=== PATIENT | female | born 1945 | race Hispanic/Latino ===

== ENCOUNTER → 2017-06-10 | Outpatient (CLI) | payer MEDICARE, OTHER ==
--- NOTE | 2017-06-18 15:39 | Polysomnography ---
DATE OF STUDY: POLYSOMNOGRAM REPORT A patient of Dr. Ortiz. A 72-year-old woman 4 feet 10 inches, 235 pounds, body mass index 49, neck size 16. This represents a diagnostic polysomnogram. The patient was monitored using standard EEG lead montage. In addition, pulse oximetry was employed, nasal and oral thermistors, rib cage and abdominal strain gauge monitor, hydrotherapist. The study was abnormal. Sleep efficiency was reduced at 79%. Sleep onset latency was prolonged at 78 minutes. Patient experienced 11 obstructive apneas, the longest in duration 20 seconds. In addition, there were 153 hypopneas, the longest in duration 30 seconds. The apnea/hypopnea index was 29.3, the respiratory disturbance index 31.8, consistent with severe obstructive sleep apnea. There was significant O2 desaturations as low as 68%. Certainly the patient should be warned not to drive when left untreated. Weight reduction should be part of the patient's therapeutic program. Examination of the nasal and oropharynx as well as assay of thyroid function should be considered if not performed recently. Therapeutic options would include uvulopalatopharyngoplasty with mandibular advancement, possibly tracheostomy and nasal CPAP. Thank you for this kind referral. Job#: [id number] RYAN
== END ==
LOC: SLEEP 22:26
PROVIDERS: ATTEND Internal Medicine
DX: G47.33 Obstructive sleep apnea (adult) (pediatric) (principal)
CPT/HCPCS: 95810

== ENCOUNTER 2018-03-31 05:08 | Observation (INO) | payer MEDICARE, OTHER ==
[2018-03-29 13:36] LABS: BASOPHILS # (AUTO) 0.1 (0.0-0.1); BASOPHILS % 0.8 % (0.0-1.0); EOSINOPHILS # (AUTO) 0.4 (0.0-0.4); EOSINOPHILS % 4.7 % (0.0-6.0); HEMATOCRIT 45.9 % (34.2-44.1); HEMOGLOBIN 14.8 g/dL (12.0-16.0); LYMPHOCYTES # (AUTO) 4.5 (1.0-3.2); LYMPHOCYTES % 49.3 % (18.0-39.1); MEAN CORPUSCULAR HEMOGLOBIN 28.7 pg (28-32); MEAN CORPUSCULAR HGB CONC 32.2 g/dL (31-35); MEAN CORPUSCULAR VOLUME 89.1 fL (81-99); MONOCYTES # (AUTO) 0.8 (0.2-0.8); MONOCYTES % 9.2 % (4.4-11.3); NEUTROPHILS # (AUTO) 3.3 (2.1-6.9); NEUTROPHILS % 35.9 % (38.7-80.0); PLATELET COUNT 312 x10e3/uL (140-360); RED BLOOD COUNT 5.15 x10e6/uL (3.6-5.1); RED CELL DISTRIBUTION WIDTH 13.8 % (11.7-14.4)
[2018-03-29 13:52] LABS: ANION GAP 14.4 mmol/L (8-16); BLOOD UREA NITROGEN 13 mg/dL (7-26); BUN/CREATININE RATIO 16 (6-25); CALCIUM 10.1 mg/dL (8.4-10.2); CARBON DIOXIDE 28 mmol/L (22-29); CHLORIDE 101 mmol/L (98-107); CREATININE, SERUM 0.81 mg/dL (0.57-1.11); EST GLOMERULAR FILTRATION RATE > 60 ML/MIN (60-); GLUCOSE 95 mg/dL (74-118); SODIUM 138 mmol/L (136-145)
[2018-03-29 13:54] LABS: POTASSIUM 5.4 mmol/L (3.5-5.1)
--- NOTE | 2018-03-29 15:09 | Diagnostic Imaging Report ---
EXAMINATION: PA and lateral views of the chest. COMPARISON: None CLINICAL HISTORY: Preop exam for hiatal hernia repair DISCUSSION: Lines/tubes: None. Lungs: The lungs are well inflated and clear. There is no evidence of pneumonia or pulmonary edema. Pleura: There is no pleural effusion or pneumothorax. Heart and mediastinum: Stable borderline to mild enlargement of the cardiac silhouette. Pulmonary vasculature is normal. Bones and soft tissues: No acute bony abnormalities. Degenerative changes in the thoracic spine IMPRESSION: Stable borderline to mild enlargement of the cardiac silhouette, without acute cardiopulmonary abnormalities. Signed by: Dr. Cam Colon M.D. on 03/29/2018 3:06 PM
[~2018-03-31] VITALS: Ht 147.3 cm; Wt 113.6 kg
[~2018-03-31 05:08] MED LIST: ATORVASTATIN CA20 MG PO; CYCLOBENZAPRINE10 MG PO; FERROUS SULFAT325 MG PO; GABAPENTIN300 MG PO; HYDROCODON-ACE1 EA10 PO; IBUPROFEN400 MG PO; INVOKANA PO; JARDIANCE PO; LEVOTHYROXINE75 MCG PO; METHYLPREDNISOLO4 MG PO; METOPROLOL TART50 MG PO; MORPHINE SULFATE PO; TRAZODONE HCL50 MG PO; ULTRAM 50MG50 MG PO; VITAMIN D2 PO; XARELTO15 MG PO
--- OUTSIDE RECORDS SUMMARY | 2018-03-31 05:11 | XMS REPORT | Clinical Summary ---
Author Author [facility] [employer] [facility] Organization [facility] Address Unknown Phone Unavailable Care Team Providers Care Bird Trapper Name Role Phone Diogo Sifuentes MD PCP Allergies No Known Allergies Medications End Date Status Medication Sig Dispensed Refills Start Date Active empagliflozin (JARDIANCE) Take 10 mg by 0 10 mg tablet tablet mouth every morning. Active amitriptyline (ELAVIL) 50 Take 50 mg by 0 MG tablet mouth nightly. Active furosemide (LASIX) 40 mg Take 40 mg by 0 tablet mouth 2 (two) times a day. Active ergocalciferol (VITAMIN Take 50,000 0 D2) 50,000 unit capsule Units by mouth once a week. 12/14/2017 Discontinued metoprolol tartrate Take 50 mg by 0 (LOPRESSOR) 50 mg tablet mouth every morning. 12/14/2017 Discontinued metoprolol tartrate Take 25 mg by 0 (LOPRESSOR) 25 mg tablet mouth every evening. 12/13/2017 amoxicillin (AMOXIL) 500 Take 500 mg 0 12/03/201 MG capsule by mouth 3 8 (three) times a day. For 10 days 01/13/2018 metoprolol tartrate Take 1 tablet 30 tablet 0 (LOPRESSOR) 50 mg tablet (50 mg total) 8 by mouth every evening for 30 days. 01/13/2018 rivaroxaban (XARELTO) 15 Take 1 tablet 30 tablet 0 201 mg tablet (15 mg total) 8 by mouth daily for 30 days. Active Problems Problem Noted Date Generalized abdominal pain 12/08/2017 Congestive heart failure 06/01/2017 Diabetes mellitus 06/01/2017 Hypothyroidism 06/01/2017 Pulmonary embolism 06/01/2017 Encounters Care Team Description Date Type Specialty Serenity Reagan RN 12/14/2017 Patient Quality Outreach Sanya Carr MD Morris, MD Ida Stanley, Darby Mack MD Generalized abdominal pain (Primary Dx) 12/08/2017 [facility] General Surgery - Encounter 12/14/2017 after 03/30/2017 Social History Date Tobacco Use Types Packs/Day Years Used Former Smoker Smokeless Tobacco: Never Used Alcohol Use Drinks/Week oz/Week Comments No Sex Assigned at Date Recorded Not on file Industry Job Start Date Occupation Not on file Not on file Not on file Travel End Travel History Travel Start No recent travel history available. Last Filed Vital Signs Time Taken Vital Sign Reading 12/14/2017 3:06 PM CDT Blood Pressure 124/67 12/14/2017 3:06 PM CDT Pulse 91 12/14/2017 3:06 PM CDT Temperature 37.4 C (99.3 F) 12/14/2017 3:06 PM CDT Respiratory Rate 17 12/14/2017 3:06 PM CDT Oxygen Saturation 93% - Inhaled Oxygen - Concentration 12/08/2017 9:21 PM CDT Weight 107 kg (235 lb) 12/08/2017 9:21 PM CDT Height 147.3 cm (4' 10") 12/08/2017 9:21 PM CDT Body Mass Index 49.12 Plan of Treatment Health Maintenance Due Date Last Done Comments DIABETIC RETINAL EYE EXAM 1946 DIABETIC FOOT EXAM 1956 URINE MICROALBUMIN 1956 BREAST CANCER SCREENING 1996 COLON CANCER SCREENING 1996 SHINGLES VACCINES (1 of 1996 2) PNEUMOCOCCAL 2011 POLYSACCHARIDE VACCINE AGE 65 AND OVER PNEUMOCOCCAL-13 2011 INFLUENZA VACCINE 10/21/2017 12/21/2016 Procedures Comments Procedure Name Priority Date/Time Associated Diagnosis POC GLUCOSE Routine 12/14/2017 3:59 PM CDT POC GLUCOSE Routine 12/14/2017 11:10 AM CDT POC GLUCOSE Routine 12/14/2017 6:21 AM CDT POC GLUCOSE Routine 12/13/2017 8:09 PM CDT POC GLUCOSE Routine 12/13/2017 4:[address] ANGIOGRAM PE CHEST Routine 12/13/2017 4:03 PM CDT POC GLUCOSE Routine 12/13/2017 11:47 AM CDT POC GLUCOSE Routine 12/13/2017 6:13 AM CDT ESTIMATED GFR Routine 12/13/2017 5:54 AM CDT BASIC METABOLIC PANEL Routine 12/13/2017 5:54 AM CDT HC COMPLETE BLD COUNT Routine 12/13/2017 W/AUTO DIFF 5:54 AM CDT POC GLUCOSE Routine 12/12/2017 9:07 PM CDT POC GLUCOSE Routine 12/12/2017 4:44 PM CDT POC GLUCOSE Routine 12/12/2017 12:05 PM CDT POC GLUCOSE Routine 12/12/2017 6:15 AM CDT POC GLUCOSE Routine 12/11/2017 8:58 PM CDT POC GLUCOSE Routine 12/11/2017 4:52 PM CDT POC GLUCOSE Routine 12/11/2017 11:06 AM CDT ESTIMATED GFR Routine 12/11/2017 6:34 AM CDT BASIC METABOLIC PANEL Routine 12/11/2017 6:34 AM CDT HC COMPLETE BLD COUNT Routine 12/11/2017 W/AUTO DIFF 6:34 AM CDT POC GLUCOSE Routine 12/11/2017 5:42 AM CDT POC GLUCOSE Routine 12/10/2017 8:52 PM CDT POC GLUCOSE Routine 12/10/2017 4:00 PM CDT US DUPLEX VENOUS LOWER STAT 12/10/2017 EXTREMITY LEFT 3:40 PM CDT POC GLUCOSE Routine 12/10/2017 11:17 AM CDT ESTIMATED GFR STAT 12/10/2017 8:19 AM CDT BASIC METABOLIC PANEL STAT 12/10/2017 8:19 AM CDT HC COMPLETE BLD COUNT STAT 12/10/2017 W/AUTO DIFF 8:19 AM CDT POC GLUCOSE Routine 12/10/2017 6:24 AM CDT POC GLUCOSE Routine 12/10/2017 6:18 AM CDT POC GLUCOSE Routine 12/09/2017 9:02 PM CDT POC GLUCOSE Routine 12/09/2017 5:[address] ABDOMEN PELVIS W STAT 12/08/2017 CONTRAST 11:48 PM CDT ECG ED PRELIMINARY Routine 12/08/2017 INTERPRETATION 10:37 PM CDT LIPASE LEVEL Routine 12/08/2017 10:28 PM CDT ESTIMATED GFR Routine 12/08/2017 10:28 PM CDT B NATRIURETIC PEPTIDE Routine 12/08/2017 10:28 PM CDT TROPONIN Routine 12/08/2017 10:28 PM CDT COMPREHENSIVE METABOLIC Routine 12/08/2017 PANEL 10:28 PM CDT PROTHROMBIN TIME WITH INR Routine 12/08/2017 10:28 PM CDT HC COMPLETE BLD COUNT Routine 12/08/2017 W/AUTO DIFF 10:28 PM CDT ECG ED PRELIMINARY Routine 12/08/2017 INTERPRETATION 10:15 PM CDT ECG 12-LEAD STAT 12/08/2017 10:12 PM CDT XR CHEST 1 VW PORTABLE STAT 12/08/2017 9:51 PM CDT after 03/30/2017 Results * POC glucose (12/14/2017 3:59 PM CDT) Only the most recent of 22 results within the time period is included. POC glucose 120 (H) 65 - 100 mg/dL [facility] Comment: PATHOLOGY AND Meter ID: [id number] GENOMIC MEDICINE Biomedical Equipment Tech: Basia James Performing Organization Address City/State/Zipcode Phone Number [facility] [address] [place] [address] PATHOLOGY AND GENOMIC MEDICINE * CT Angiogram Pe Chest (12/13/2017 4:03 PM CDT) Narrative Performed At EXAMINATION: [facility] CT ANGIOGRAM PE CHEST CLINICAL HISTORY:72 years Female DVT TECHNIQUE:CT angiographic images of the chest were obtained during intravenous administration of iodinated contrast. Computerized reformatted images and 3-D MIP images were also obtained and archived (CT pulmonary embolus protocol). CT imaging was performed with iterative reconstruction techniques and/or automated exposure control to reduce radiation dose. COMPARISON: None. FINDINGS: 1.There is no evidence of central pulmonary artery embolus. 2.There is no evidence of hilar or mediastinal lymphadenopathy. 3.No parenchymal abnormality is noted in the lungs. 4.Changes are noted involving the spine. IMPRESSION: 1.No evidence of central pulmonary artery embolus. [facility]-[id number] Procedure Note [facility], Radiology Results Incoming - 12/13/2017 4:09 PM CDT EXAMINATION: CT ANGIOGRAM PE CHEST CLINICAL HISTORY:72 years Female DVT TECHNIQUE: CT angiographic images of the chest were obtained during intravenous administration of iodinated contrast. Computerized reformatted images and 3-D MIP images were also obtained and archived (CT pulmonary embolus protocol). CT imaging was performed with iterative reconstruction techniques and/or automated exposure control to reduce radiation dose. COMPARISON: None. FINDINGS: 1. There is no evidence of central pulmonary artery embolus. 2. There is no evidence of hilar or mediastinal lymphadenopathy. 3. No parenchymal abnormality is noted in the lungs. 4. Changes are noted involving the spine. IMPRESSION: 1. No evidence of central pulmonary artery embolus. [facility]-[id number] Performing Organization Address City/State/Zipcode Phone Number [facility] [address] [place] [address] * Estimated GFR (12/13/2017 5:54 AM CDT) Only the most recent of 4 results within the time period is included. Estimated GFR 87 mL/min/1.73 m2 [facility] Comment: PATHOLOGY AND [employer] GENOMIC MEDICINE rpretation G1 >=90 Normal or high G2 60-89Mildly decreased [id number] Mildly to moderately decreased [id number] Moderately to severely decreased G4 15-29Severely decreased G5 <15Kidney failure The eGFR was calculated using the Chronic Kidney Disease Epidemiology Collaboration (CKD-EPI) equation. Interpretation is based on recommendations of the National Kidney Foundation-Kidney Disease Outcomes Quality Initiative (NKF-KDOQI) published in 2014. Specimen Plasma specimen Performing Organization Address City/State/Zipcode Phone Number [facility] [place] [address] PATHOLOGY AND GENOMIC MEDICINE * CBC with platelet and differential (12/13/2017 5:54 AM CDT) Only the most recent of 4 results within the time period is included. WBC 6.2 4.2 - 11.0 k/uL [facility] PATHOLOGY AND GENOMIC MEDICINE RBC 4.59 4.04 - 5.86 m/uL [facility] PATHOLOGY AND GENOMIC MEDICINE HGB 12.8 11.5 - 15.3 g/dL [facility] PATHOLOGY AND GENOMIC MEDICINE HCT 41.4 34.0 - 45.0 % [facility] PATHOLOGY AND GENOMIC MEDICINE MCV 90.2 80.0 - 98.0 fL [facility] PATHOLOGY AND GENOMIC MEDICINE MCH 27.9 27.0 - 34.0 pg [facility] PATHOLOGY AND GENOMIC MEDICINE MCHC 30.9 (L) 31.5 - 36.5 g/dL [facility] PATHOLOGY AND GENOMIC MEDICINE RDW - SD 42.3 37.0 - 51.0 fL [facility] PATHOLOGY AND GENOMIC MEDICINE MPV 9.7 7.4 - 10.4 fL [facility] PATHOLOGY AND GENOMIC MEDICINE Platelet count 242 150 - 400 k/uL [facility] PATHOLOGY AND GENOMIC MEDICINE Nucleated RBC 0.00 /100 WBC [facility] PATHOLOGY AND GENOMIC MEDICINE Neutrophils 34.6 (L) 36.0 - 66.0 % [facility] PATHOLOGY AND GENOMIC MEDICINE Lymphocytes 50.0 (H) 24.0 - 44.0 % [facility] PATHOLOGY AND GENOMIC MEDICINE Monocytes 8.9 (H) 0.0 - 6.0 % [facility] OF PATHOLOGY AND GENOMIC MEDICINE Eosinophils 5.7 0.0 - 6.0 % [facility] OF PATHOLOGY AND GENOMIC MEDICINE Basophils 0.6 0.0 - 1.2 % [facility] OF PATHOLOGY AND GENOMIC MEDICINE Immature granulocytes 0.2 0.0 - 1.0 % [facility] PATHOLOGY AND GENOMIC MEDICINE Specimen Blood Performing Organization Address City/[facility] Phone [facility] [place] [address] [place] [address] PATHOLOGY AND [employer] MEDICINE * Basic metabolic panel (12/13/2017 5:54 AM CDT) Only the most recent of 3 results within the time period is included. Sodium 143 135 - 150 mEq/L [facility] PATHOLOGY AND GENOMIC MEDICINE Potassium 3.5 3.5 - 5.0 mEq/L [facility] OF PATHOLOGY AND GENOMIC MEDICINE Chloride 103 98 - 112 mEq/L [facility] PATHOLOGY AND GENOMIC MEDICINE CO2 30 24 - 31 mmol/L [facility] OF PATHOLOGY AND GENOMIC MEDICINE Anion gap 10@ANIO 7 - 15 mEq/L [facility] OF PATHOLOGY AND GENOMIC MEDICINE BUN 16 7 - 18 mg/dL [facility] OF PATHOLOGY AND GENOMIC MEDICINE Creatinine 0.70 0.50 - 0.90 mg/dL [facility] PATHOLOGY AND GENOMIC MEDICINE Glucose 84 65 - 100 mg/dL [facility] OF PATHOLOGY AND GENOMIC MEDICINE Calcium 8.6 (L) 8.8 - 10.2 mg/dL [facility] PATHOLOGY AND GENOMIC MEDICINE Specimen Plasma specimen Performing Organization Address City/[facility] Phone Number [place] [address] [place] [address] PATHOLOGY AND [employer] [facility] * Pv duplex venous lower extremity (12/10/2017 3:40 PM CDT) Narrative Performed At PROCEDURE:US DUPLEX VENOUS LOWER EXTREMITY LEFT [facility] CLINICAL HISTORY:Leg swelling or painDVT suspected COMPARISON:None. TECHNIQUE: Compression of the accessible segments of the deep venous system of the left lower extremity was performed in addition to Doppler interrogation by both color flow and pulse wave Doppler with use of augmentation and Valsalva maneuvers. Grayscale, color Doppler, and spectral waveform analysis of the lower extremity deep venous systems were performed. Interrogation of the contralateral common femoral vein was performed. and is patent. FINDINGS: Absence of compression is demonstrated of the left popliteal vein No abnormal intraluminal echogenicity is seen. Good compression is seen in the remainder of the deep venous system of the left lower extremity with flow present in the left peroneal and posterior tibial veins. IMPRESSION: Abnormal study. Acute deep venous thrombosis of the left popliteal vein. Critical findings were discussed with Nurse Berenice Newman [facility] Observation Unit12/10/2017 3:51 PMwho verbalized understanding. [id number] . Procedure Note [facility] Interface, Radiology Results Incoming - 12/10/2017 3:56 PM CDT PROCEDURE: US DUPLEX VENOUS LOWER EXTREMITY LEFT CLINICAL HISTORY: Leg swelling or pain DVT suspected COMPARISON: None. TECHNIQUE: Compression of the accessible segments of the deep venous system of the left lower extremity was performed in addition to Doppler interrogation by both color flow and pulse wave Doppler with use of augmentation and Valsalva maneuvers. Grayscale, color Doppler, and spectral waveform analysis of the lower extremity deep venous systems were performed. Interrogation of the contralateral common femoral vein was performed. and is patent. FINDINGS: Absence of compression is demonstrated of the left popliteal vein No abnormal intraluminal echogenicity is seen. Good compression is seen in the remainder of the deep venous system of the left lower extremity with flow present in the left peroneal and posterior tibial veins. IMPRESSION: Abnormal study. Acute deep venous thrombosis of the left popliteal vein. Critical findings were discussed with Nurse Berenice Newman at [facility] Observation Unit 12/10/2017 3:51 PM who verbalized understanding. [id number] . Performing Organization Address City/State/Zipcode Phone Number [facility] [address] [place] [address] * CT Abdomen Pelvis W Contrast (12/08/2017 11:48 PM CDT) Narrative Performed At EXAM: [facility]:diffuse abd pain TECHNIQUE: Multidetector CT of the abdomen and pelvis was performed following intravenous administration of iodinated contrast with multiplanar reformats. CT scans are performed using radiation dose reduction techniques (iterative reconstruction and/or automated exposure control). Technical factors are evaluated and adjusted to ensure appropriate moderation of exposure. Automated dose management technology is applied to adjust radiation exposure while achieving a diagnostic quality image. COMPARISON:None FINDINGS: Lung bases: Dependent atelectasis. Few calcifications identified within the aortic annulus. Otherwise unremarkable. Liver:No evidence for suspicious focal hepatic lesion. Gallbladder and biliary:The gallbladder is absent. Clips within the gallbladder fossa. Pancreas:No focal pancreatic lesion identified. No pancreatic duct dilatation. Spleen: Unremarkable. Gastrointestinal:Stomach is unremarkable in appearance. Large and small bowel are normal in caliber. Appendix is not visualized. No focal inflammatory changes within the right lower quadrant of the abdomen. Peritoneum:No ascites or free air. Adrenals: Unremarkable. Kidneys and ureters: Couple scattered subcentimeter hypodensities are identified, incompletely characterized on the current examination but statistically patient representative of cysts. There is no evidence for large irregular renal mass, obstructing calculi, hydronephrosis, or hydroureter. Urinary bladder: Unremarkable. Reproductive organs:Uterus is surgically absent. Lymph nodes:No enlarged lymph nodes in the abdomen or pelvis. Vascular:Mild atherosclerotic changes of the abdominal aorta and major branch vessels. Evaluation of vessel lumens is limited due to lack of IV contrast. Abdominal wall: Small periumbilical fat-containing hernia (image 89, series 2). Bones:Scattered degenerative changes of the spine are noted. No acute osseous abnormality identified. IMPRESSION: 1.No CT evidence for acute abdominopelvic process. Chronic findings as listed. Small periumbilical fat-containing hernia is identified. No CT evidence for inguinal hernia. [facility]-[id number] Procedure Note [facility], Radiology Results Incoming - 12/08/2017 11:56 PM CDT EXAM: CT ABDOMEN PELVIS W CONTRAST CLINICAL HISTORY: diffuse abd pain TECHNIQUE: Multidetector CT of the abdomen and pelvis was performed following intravenous administration of iodinated contrast with multiplanar reformats. CT scans are performed using radiation dose reduction techniques (iterative reconstruction and/or automated exposure control). Technical factors are evaluated and adjusted to ensure appropriate moderation of exposure. Automated dose management technology is applied to adjust radiation exposure while achieving a diagnostic quality image. COMPARISON: None FINDINGS: Lung bases: Dependent atelectasis. Few calcifications identified within the aortic annulus. Otherwise unremarkable. Liver: No evidence for suspicious focal hepatic lesion. Gallbladder and biliary: The gallbladder is absent. Clips within the gallbladder fossa. Pancreas: No focal pancreatic lesion identified. No pancreatic duct dilatation. Spleen: Unremarkable. Gastrointestinal: Stomach is unremarkable in appearance. Large and small bowel are normal in caliber. Appendix is not visualized. No focal inflammatory changes within the right lower quadrant of the abdomen. Peritoneum: No ascites or free air. Adrenals: Unremarkable. Kidneys and ureters: Couple scattered subcentimeter hypodensities are identified, incompletely characterized on the current examination but statistically patient representative of cysts. There is no evidence for large irregular renal mass, obstructing calculi, hydronephrosis, or hydroureter. Urinary bladder: Unremarkable. Reproductive organs: Uterus is surgically absent. Lymph nodes: No enlarged lymph nodes in the abdomen or pelvis. Vascular: Mild atherosclerotic changes of the abdominal aorta and major branch vessels. Evaluation of vessel lumens is limited due to lack of IV contrast. Abdominal wall: Small periumbilical fat-containing hernia (image 89, series 2). Bones: Scattered degenerative changes of the spine are noted. No acute osseous abnormality identified. IMPRESSION: 1. No CT evidence for acute abdominopelvic process. Chronic findings as listed. Small periumbilical fat-containing hernia is identified. No CT evidence for inguinal hernia. [facility]-[id number] Performing Organization Address City/State/Zipcode Phone Number [facility] [address] [place] [address] * ECG ED Preliminary Interpretation - NOT AN ORDER (12/08/2017 10:37 PM CDT) Only the most recent of 2 results within the time period is included. Narrative Performed At Sanya Carr MD 12/08/2017 10:38 PM ECG ED Preliminary Interpretation - Not an Order Performed by: SANYA CARR Authorized by: SANYA CARR ECG reviewed by ED Physician in the absence of a eight arm operator: yes Previous ECG: Previous ECG:Compared to current Interpretation: Interpretation: normal Rate: ECG rate:63 ECG rate assessment: normal Rhythm: Rhythm: sinus rhythm Ectopy: Ectopy: none QRS: QRS axis:Normal Conduction: Conduction: normal ST segments: ST segments:Normal T waves: T waves: normal * Troponin (12/08/2017 10:28 PM CDT) Troponin <0.30 0.00 - 0.30 ng/mL [facility] Comment: PATHOLOGY AND 0.11 - 1.49 GENOMIC MEDICINE ng/mlMay indicate increased risk of acute coronary syndrome. >=1.5 ng/ml Consistent with acute myocardial infarction. The diagnostic value of a single normal or non-diagnostic result is questionable.Serial samples at 2-6 hour intervals are required to rule out acute myocardial injury. Specimen Plasma specimen Performing Organization Address [facility] [place] [address] PATHOLOGY AND [employer] MEDICINE * Prothrombin time with INR (12/08/2017 10:28 PM CDT) Prothrombin time 12.9 12.0 - 15.0 sec [facility] PATHOLOGY AND GENOMIC MEDICINE INR 0.96 0.92 - 1.12 [facility] Comment: PATHOLOGY AND For patients on anticoagulant GENOMIC MEDICINE therapy, reference ranges below: Indication: INR Value Treatment of Venous Thrombosis, 2.0-3.0 pulmonary emboli, or prophylaxis of a venous thrombosis, or systemic emboli. High dose, high risk patients 3.0-4.5 with mechanical valves. NOTE:INR values over 3.0 are sometimes associated with gastrointestinal hemorrhage, especially values over 4.0. Specimen Blood Performing Organization Address [facility] [place] [address] PATHOLOGY AND [employer] [facility] * B natriuretic peptide (12/08/2017 10:28 PM CDT) BNP 28 0 - 100 pg/mL [facility] PATHOLOGY AND [employer] MEDICINE Specimen Blood Performing Organization Address [facility] [place] [address] PATHOLOGY AND [employer] MEDICINE * Lipase level (12/08/2017 10:28 PM CDT) Lipase 30 13 - 60 U/L [facility] PATHOLOGY AND [employer] MEDICINE Specimen Plasma specimen Performing Organization Address [facility] [place] [address] PATHOLOGY AND [employer] MEDICINE * Comprehensive metabolic panel (12/08/2017 10:28 PM CDT) Sodium 145 135 - 150 mEq/L [facility] OF PATHOLOGY AND GENOMIC MEDICINE Potassium 3.6 3.5 - 5.0 mEq/L [facility] OF PATHOLOGY AND GENOMIC MEDICINE Chloride 103 98 - 112 mEq/L [facility]OLOGY AND GENOMIC MEDICINE CO2 28 24 - 31 mmol/L [facility] PATHOLOGY AND GENOMIC MEDICINE Anion gap 14@ANIO 7 - 15 mEq/L [facility] OF PATHOLOGY AND GENOMIC MEDICINE BUN 18 7 - 18 mg/dL [facility] OF PATHOLOGY AND GENOMIC MEDICINE Creatinine 0.80 0.50 - 0.90 mg/dL [facility] OF PATHOLOGY AND GENOMIC MEDICINE Glucose 115 (H) 65 - 100 mg/dL [facility] OF PATHOLOGY AND GENOMIC MEDICINE Calcium 9.2 8.8 - 10.2 mg/dL [facility] OF PATHOLOGY AND GENOMIC MEDICINE Protein 7.4 6.3 - 8.3 g/dL [facility] OF PATHOLOGY AND GENOMIC MEDICINE Albumin 3.6 3.5 - 5.0 g/dL [facility] OF PATHOLOGY AND GENOMIC MEDICINE A/G ratio 0.9 0.7 - 3.8 [facility] OF PATHOLOGY AND GENOMIC MEDICINE Alkaline phosphatase 76 0 - 104 U/L [facility] PATHOLOGY AND GENOMIC MEDICINE AST 20 10 - 35 U/L [facility] OF PATHOLOGY AND GENOMIC MEDICINE ALT 13 5 - 50 U/L [facility] DEPARTMENT OF PATHOLOGY AND GENOMIC MEDICINE Total bilirubin 0.3 0.2 - 1.2 mg/dL [facility] [place] [facility]PARTMENT OF PATHOLOGY AND GENOMIC MEDICINE Specimen Plasma specimen Performing Organization Address City/[facility] Phone Number [facility] [address] [place] [id number] PATHOLOGY AND GENOMIC MEDICINE * ECG 12 lead (12/08/2017 10:12 PM CDT) Ventricular rate 63 [facility] Atrial rate 63 [facility] RI interval 152 [facility] QRSD interval 88 [facility] QT interval 410 [facility] QTC interval 419 [facility] P axis 1 41 [facility] QRS axis 1 269 [facility] T wave axis 129 [facility] EKG impression Normal sinus rhythm-Low [facility] voltage QRS-Possible Anterolateral infarct , age undetermined-Abnormal ECG-No previous ECGs available- Performing Organization Address City/[facility] Phone Number [facility] M[facility] [address] [place] [address] * XR Chest 1 Vw Portable (12/08/2017 9:51 PM CDT) Narrative Performed At EXAMINATION: XR CHEST 1 VW PORTABLE [facility] CLINICAL HISTORY: Chest Pain COMPARISON:None. IMPRESSION: The lungs are clear. No pleural effusion or pneumothorax. The cardiomediastinal silhouette is normal. No acute osseous abnormalities. [facility]-[id number] Procedure Note Hm Interface, Radiology Results Incoming - 12/08/2017 9:58 PM CDT EXAMINATION: XR CHEST 1 VW PORTABLE CLINICAL HISTORY: Chest Pain COMPARISON: None. IMPRESSION: The lungs are clear. No pleural effusion or pneumothorax. The cardiomediastinal silhouette is normal. No acute osseous abnormalities. [facility]-[id number] Performing Organization Address City/State/Zipcode Phone Number [facility] [address] [place] [address] after 03/30/2017 Insurance Payer Benefit Subscriber ID Type Phone Address Plan / Group [facility] MEDICAID [facility] xxxxxxxxx HMO COMM STAR+ EDELMIRA [facility] MEDICARE [facility] DUAL xxxxxxxxx HMO COMPLETE MCR Advance Directives Patient has advance care planning documents on file. For more information, viry may contact: Pranav Apple [address] [place] [address]
--- OUTSIDE RECORDS SUMMARY | 2018-03-31 05:11 | XMS REPORT ---
Author Author Martita Simmons Organization e[employer] Address Unknown Phone Unavailable Care Team Providers Care Appeals Nurse Name Role Phone Martita Simmons CP Unavailable Allergies, Adverse Reactions, Alerts Substance Reaction Event Type Contrast dye Info Not Available Drug Allergy Problems Problem Type Condition Code Onset Dates Condition Status Assessment Counseling NOS Z71.9 Active Assessment Lymphedema of left leg I89.0 Active Problem Osteoarthritis involving multiple joints on both sides of body M15.9 Active Problem Lymphedema of left leg I89.0 Active Problem Rheumatoid arthritis of multiple sites without rheumatoid factor M06.09 Active Assessment Left cervical radiculopathy M54.12 Active Assessment Osteoarthritis involving multiple joints on both sides of body M15.9 Active Assessment Rheumatoid arthritis of multiple sites without rheumatoid factor M06.09 Active Assessment Cervicalgia M54.2 Active Medications Medication Code System Code Instructions Start Date End Date Status Dosage Methotrexate [facility] [address]-32 2.5 MG Orally Once a week September 01, 2016 Active 4 tabs MethylPREDNISolone [facility] [address]-43 4 MG Orally Active 1 tablet with food or milk in the morning Trazodone HCl [facility] [address]-96 50 MG Orally Once a day Active 1 tablet at bedtime as needed Ibuprofen [facility] [address]-84 800 MG Orally Three times a day Active 1 tablet with food or milk Invokana [facility] [address]-69 100 MG Orally Once a day Active 1 tablet Cyclobenzaprine HCl [facility] [address]-41 10 MG Orally Three times a day Active 1 tablet as needed Ferrous Sulfate [facility] [address]-58 325 (65 Fe) MG Orally Once a day Active 1 tablet PredniSONE [facility] [address]-44 5 MG Orally Once a day prn with food Dec 30, 2016 Active 1 tablet Gabapentin [facility] [address]-75 300 MG Orally bedtime September 01, 2016 Active 1 capsule Vitamin D2 [facility] [address] 2000 UNIT Orally Once a day Active 1 tablet Atorvastatin Calcium [facility] [address]-79 20 MG Orally Once a day Active 1 tablet Folic Acid [facility] [address]-23 1 MG Orally Once a day September 01, 2016 Active 1 tablet Levothyroxine Sodium [facility] [address]-09 75 MCG Orally Once a day Active 1 tablet on an empty stomach in the morning Vital Signs Date/Time: September 01, 2016 Height 59 in Blood Pressure Diastolic 104 mm Hg Blood Pressure Systolic 153 mm Hg Weight 251 lbs Results No Known Results Summary Purpose eClinicalWorks Submission
--- OUTSIDE RECORDS SUMMARY | 2018-03-31 05:11 | XMS REPORT ---
Author Author [facility] Organization [facility] Address Unknown Phone Unavailable Care Team Providers Care Residential Advisor Name Role Phone DUKE WISE Unavailable Unavailable Payers Payer Name Policy Type Policy Number Effective Date Expiration Date Problems This patient has no known problems. Allergies, Adverse Reactions, Alerts Allergy Name Allergy Type Status Severity Reaction(s) Onset Date Inactive Date Treating Clinician Comments No Known Allergies DA Active U 2017-02-19 00:00:00 Medications This patient has no known medications. Results Test Description Test Time Test Comments Text Results Atomic Results Result Comments CHEST 2 VIEWS 2018-03-29 15:05:00 [place] [address] Patient Name: DAVID MONTERROSO MR #: [id number] : 1945 Age/Sex: 72/F Req #: [id number] Adm Physician: Ordered by: DUKE WISE MD Report #: [id number] Location: OR Room/Bed: Procedure: [id number] DX/CHEST 2 VIEWS Exam Date: 03/29/18 Exam Time: 1350 REPORT STATUS: Signed EXAMINATION: PA and lateral views of the chest. COMPARISON: None CLINICAL HISTORY: Preop exam for hiatal hernia repair DISCUSSION: Lines/tubes: None. Lungs: The lungs are well inflated and clear. There is no evidence of pneumonia or pulmonary edema. Pleura: There is no pleural effusion or pneumothorax. Heart and mediastinum: Stable borderline to mild enlargement of the cardiac silhouette. Pulmonary vasculature is normal. Bones and soft tissues: No acute bony abnormalities. Degenerative changes in the thoracic spine IMPRESSION: Stable borderline to mild enlargement of the cardiac silhouette, without acute cardiopulmonary abnormalities. Signed by: Dr. Sylvain Colon M.D. on 03/29/2018 3:06 PM Dictated By: SYLVAIN COLON MD [id number] Transcribed By: GRICEL on 03/29/18 1506 COPY TO: DUKE WISE MD
--- OUTSIDE RECORDS SUMMARY | 2018-03-31 05:11 | XMS REPORT | Continuity of Care Document ---
Author Author [facility] Interface Address Unknown Phone Unavailable Problems Problem Status Onset Date Classification Date Reported Comments Source Lymphedema of left leg Active Diagnosis 09/02/2016 Martita Najam Pain in right wrist Active Diagnosis 07/15/2016 Martita Najam Osteoarthritis involving multiple joints on both sides of body Active Problem 09/02/2016 Martita Najam Stiffness of right wrist joint Active Diagnosis 07/15/2016 Martita Najam Pain in left wrist Active Diagnosis 07/25/2016 Martita Najam Stiffness of left wrist joint Active Diagnosis 07/25/2016 Martita Najam Swelling of joint, wrist, left Active Diagnosis 07/25/2016 Martita Najam Counseling NOS Active Diagnosis 09/02/2016 Martita Najam Pain of left hand Active Diagnosis 07/03/2016 Martita Najam Left cervical radiculopathy Active Diagnosis 09/02/2016 Martita Najam Pain in right hand Active Diagnosis 07/03/2016 Martita Najam Cervicalgia Active Diagnosis 09/02/2016 Martita Najam Rheumatoid arthritis of multiple sites without rheumatoid factor Active Problem 09/02/2016 Martitafrankie Simmons Medications Medication Details Route Status Patient Instructions Ordering Provider Order Date Source PredniSONE 1 tablet Orally Active 5 MG Orally Once a day prn with food [facility] 12/30/2016 [facility] Methotrexate 4 tabs Orally Active 2.5 MG Orally Once a week Naja 09/01/2016 Martita [facility] Gabapentin 1 capsule Orally Active 300 MG Orally bedtime Naja 09/01/2016 Martita [facility] Folic Acid 1 tablet Orally Active 1 MG Orally Once a day [facility] 09/01/2016 Martita Naja PredniSONE 1 tablet Orally Active 5 MG Orally Once a day prn with food Naja 07/02/2016 [facility]ita [facility] Levothyroxine Sodium 1 tablet on an empty stomach in the morning Orally Active 75 MCG [facility] Ator[facility]atin Calcium 1 tablet Orally Active 20 MG [facility]ally [facility] Najam MethylPREDNISolone 1 tablet with food or milk in the morning Orally Active 4 MG Orally Troy Simmons Trazodone HCl 1 tablet at bedtime as needed Orally Active 50 MG Orally Once a day Troy Simmons Vitamin D2 1 tablet Orally Active 2000 UNIT Orally Once a day Troy Simmons Cyclobenzaprine HCl 1 tablet as needed Orally Active 10 MG Orally Three times a day Troy Simmons Ferrous Sulfate 1 tablet Orally Active 325 (65 Fe) MG Orally Once a day Troy Simmons Ibuprofen 1 tablet with food or milk Orally Active 800 MG Orally Three times a day Troy Simmons Invokana 1 tablet Orally Active 100 MG Orally Once a day Troy Simmons Allergies, Adverse Reactions, Alerts Substance Category Reaction Severity Reaction type Status Date Reported Comments Source Contrast dye Adverse Reaction Info Not Available Adverse Reaction Active 09/01/2016 Martita Simmons Immunizations Immunization Date Given Site Status Last Updated Comments Source Results Order Name Results Value Reference Range Date Interpretation Comments Source Vital Signs Vital Sign Value Date Comments Source Height 59 09/01/2016 Martita Namarniem Diastolic (mm Hg) 104 09/01/2016 Martita Najam Systolic (mm Hg) 153 09/01/2016 Martita Collinsm Weight 251 09/01/2016 Martita Simmons Height 59 07/02/2016 Martita Najam Diastolic (mm Hg) 73 07/02/2016 Martita Najam Systolic (mm Hg) 136 07/02/2016 Martita Simmons Weight 261.0 07/02/2016 Martita Simmons Encounters Location Location Details Encounter Type Encounter Number Reason For Visit Attending Provider ADM Date DC Date Status Source Procedures Procedure Code Date Perfomer Comments Source
--- OUTSIDE RECORDS SUMMARY | 2018-03-31 05:11 | XMS REPORT ---
Author Author Martita Simmons Organization [employer] Address Unknown Phone Unavailable Care Team Providers Care Brake Machine Operator Name Role Phone Martita Simmons CP Unavailable Allergies No Known Allergies Problems Problem Type Condition Code Onset Dates Condition Status Problem Lymphedema of left leg I89.0 Active Assessment Pain in right wrist M25.531 Active Problem Osteoarthritis involving multiple joints on both sides of body M15.9 Active Assessment Stiffness of right wrist joint M25.631 Active Medications No Known Medications Results No Known Results Summary Purpose eClinicalWorks Submission
--- OUTSIDE RECORDS SUMMARY | 2018-03-31 05:11 | XMS REPORT ---
Author Author Martita Simmons Organization [employer] Address Unknown Phone Unavailable Care Team Providers Care Shipping Specialist Name Role Phone Martita Simmons CP Unavailable Allergies No Known Allergies Problems Problem Type Condition Code Onset Dates Condition Status Problem Lymphedema of left leg I89.0 Active Assessment Pain in left wrist M25.532 Active Problem Osteoarthritis involving multiple joints on both sides of body M15.9 Active Assessment Stiffness of left wrist joint M25.632 Active Assessment Swelling of joint, wrist, left M25.432 Active Medications No Known Medications Results No Known Results Summary Purpose eClinicalWorks Submission
--- OUTSIDE RECORDS SUMMARY | 2018-03-31 05:11 | XMS REPORT ---
Author Author Martita Simmons Organization [employer] Address Unknown Phone Unavailable Care Team Providers Care [place] Cutter Operator Name Role Phone Martita Simmons CP Unavailable Allergies, Adverse Reactions, Alerts Substance Reaction Event Type Contrast dye Info Not Available Drug Allergy Problems Problem Type Condition Code Onset Dates Condition Status Assessment Counseling NOS Z71.9 Active Assessment Lymphedema of left leg I89.0 Active Problem Lymphedema of left leg I89.0 Active Assessment Pain of left hand M79.642 Active Problem Osteoarthritis involving multiple joints on both sides of body M15.9 Active Assessment Left cervical radiculopathy M54.12 Active Assessment Osteoarthritis involving multiple joints on both sides of body M15.9 Active Assessment Pain in right hand M79.641 Active Assessment Cervicalgia M54.2 Active Medications Medication Code System Code Instructions Start Date End Date Status Dosage PredniSONE [facility] [address]-06 5 MG Orally Once a day prn with food July 02, 2016 Active 1 tablet Levothyroxine Sodium [facility] [address]-23 75 MCG Orally Once a day Active 1 tablet on an empty stomach in the morning Atorvastatin Calcium [facility] [address]-06 20 MG Orally Once a day Active 1 tablet M[address]ISolone [facility] [address]-42 4 MG Orally Active 1 tablet with food or milk in the morning Trazodone HCl [facility] [address]-98 50 MG Orally Once a day Active 1 tablet at bedtime as needed Vitamin D2 [facility] [address] 2000 UNIT Orally Once a day Active 1 tablet Cyclobenzaprine HCl [facility] [address]-24 10 MG Orally Three times a day Active 1 tablet as needed Ferrous Sulfate [facility] [address]-39 325 (65 Fe) MG Orally Once a day Active [address] [facility] [address]-55 800 MG Orally Three times a day Active 1 tablet with food or milk Invokana [facility] [address]-91 100 MG Orally Once a day Active 1 tablet Vital Signs Date/Time: July 02, 2016 Height 59 in Blood Pressure Diastolic 73 mm Hg Blood Pressure Systolic 136 mm Hg Weight 261.0 lbs Results No Known Results Summary Purpose eClinicalWorks Submission
[2018-03-31] MEDS ORDERED: CEFAZOLIN SOD 2 GM/D5W 50ML 50 ML IV ONE (05:58)
[2018-03-31] MEDS ORDERED: VITAMIN D1000 UNI1 PO (06:09)
[2018-03-31] MEDS ORDERED: BUPIVACAINE HCL 0.5% 10ML MPF VIAL INJ ONE (06:33)
[2018-03-31] MEDS ORDERED: BUPIVACAINE 0.25% 30ML SDV INJ ONE (06:35)
--- NOTE | 2018-03-31 07:10 | NUR ---
SPIRITUAL CARE - Pre-Surgery Assessment: Pt in bed. Pt reported supportive attention from family and friends. Intervention: I provided pastoral presence, hospitality, prayer, and sympathetic listening. I acquainted pt with availability of chef's assistant while hospitalized. Outcome: Pt expressed appreciation for visit. No need for follow up indicated at this time. DASIA Carrionlain Spiritual Care Department O: [phone] Pager: [phone] ([phone] number calling from)
[2018-03-31] MEDS ORDERED: HYDROMORPHONE 1MG/1ML INJ IV PRN (10:00)
[2018-03-31] MEDS ORDERED: ONDANSETRON HCL INJ 2 MG/ML VIAL IV PRN (10:00)
[2018-03-31] MEDS ORDERED: FENTANYL CITRATE/PF 100MCG/2 ML INJ ONE ×2 (10:13→21:21)
[2018-03-31] MEDS ORDERED: KETOROLAC TROMETHAMINE 30 MG/ML VIAL ONE (10:40)
--- OUTSIDE RECORDS SUMMARY | 2018-03-31 11:37 | XMS REPORT | Clinical Summary ---
Author Author [facility] Address Unknown Phone Unavailable Care Team Providers Care Organizational Development Director Name Role Phone Diogo Sifuentes MD PCP [...] MD Generalized abdominal pain (Primary Dx) 12/08/2017 [facility] General Surgery - Encounter 12/14/2017 after 03/30/2017 [...] glucose 120 (H) 65 - 100 mg/dL [facility] Comment: PATHOLOGY AND Meter ID: [id number] GENOMIC MEDICINE Packaging Sales: Basia James Performing Organization Address City/State/Zipcode Phone Number [facility] [address] [place] [address] PATHOLOGY AND GENOMIC MEDICINE * CT Angiogram Pe Chest (12/13/2017 4:03 PM CDT) Narrative Performed At EXAMINATION: [facility] CT ANGIOGRAM PE CHEST CLINICAL HISTORY:72 years [...] 1.No evidence of central pulmonary artery embolus. [facility]-[id number] Procedure Note [facility], Radiology Results Incoming - 12/13/2017 4:09 PM [...] No evidence of central pulmonary artery embolus. [facility]-[id number] Performing Organization Address City/State/Zipcode Phone Number [facility] [address] [place] [address] * Estimated GFR (12/13/2017 5:54 AM CDT) Only the most recent of 4 results within the time period is included. Estimated GFR 87 mL/min/1.73 m2 [facility] Comment: PATHOLOGY AND CatergoryUnitsInte GENOMIC MEDICINE rpretation G1 >=90 Normal or high G2 60-89Mildly decreased Q5y23-40 Mildly to moderately decreased [id number] Moderately to severely decreased G4 15-29Severely decreased G5 <15Kidney failure The eGFR was calculated using the Chronic Kidney Disease Epidemiology Collaboration (CKD-EPI) equation. Interpretation is based on recommendations of the National Kidney Foundation-Kidney Disease Outcomes Quality Initiative (NKF-KDOQI) published in 2014. Specimen Plasma specimen Performing Organization Address City/State/Zipcode Phone Number [facility] [place] [address] PATHOLOGY AND GENOMIC MEDICINE * CBC with platelet and differential (12/13/2017 5:54 AM CDT) Only the most recent of 4 results within the time period is included. WBC 6.2 4.2 - 11.0 k/uL [facility] PATHOLOGY AND GENOMIC MEDICINE RBC 4.59 4.04 - 5.86 m/uL [facility] PATHOLOGY AND GENOMIC MEDICINE HGB 12.8 11.5 - 15.3 g/dL [facility] PATHOLOGY AND GENOMIC MEDICINE HCT 41.4 34.0 - 45.0 % [facility] PATHOLOGY AND GENOMIC MEDICINE MCV 90.2 80.0 - 98.0 fL [facility]OLOGY AND GENOMIC MEDICINE MCH 27.9 27.0 - 34.0 pg [facility] PATHOLOGY AND GENOMIC MEDICINE MCHC 30.9 (L) 31.5 - 36.5 g/dL [facility] PATHOLOGY AND GENOMIC MEDICINE RDW - SD 42.3 37.0 - 51.0 fL [facility] PATHOLOGY AND GENOMIC MEDICINE MPV 9.7 7.4 - 10.4 fL [facility] PATHOLOGY AND GENOMIC MEDICINE Platelet count 242 150 - 400 k/uL [facility] PATHOLOGY AND GENOMIC MEDICINE Nucleated RBC 0.00 /100 WBC [facility] PATHOLOGY AND GENOMIC MEDICINE Neutrophils 34.6 (L) 36.0 - 66.0 % [facility] PATHOLOGY AND GENOMIC MEDICINE Lymphocytes 50.0 (H) 24.0 - 44.0 % [facility] PATHOLOGY AND GENOMIC MEDICINE Monocytes 8.9 (H) 0.0 - 6.0 % [facility] PATHOLOGY AND GENOMIC MEDICINE Eosinophils 5.7 0.0 - 6.0 % [facility] PATHOLOGY AND GENOMIC MEDICINE Basophils 0.6 0.0 - 1.2 % [facility] OF PATHOLOGY AND GENOMIC MEDICINE Immature granulocytes 0.2 0.0 - 1.0 % [facility] PATHOLOGY AND GENOMIC MEDICINE Specimen Blood Performing Organization Address City/[facility] Phone Number [place] [address] [place] [address] PATHOLOGY AND Local Matters MEDICINE * Basic metabolic panel (12/13/2017 5:54 AM CDT) Only the most recent of 3 results within the time period is included. Sodium 143 135 - 150 mEq/L [facility] PATHOLOGY AND GENOMIC MEDICINE Potassium 3.5 3.5 - 5.0 mEq/L [facility] PATHOLOGY AND GENOMIC MEDICINE Chloride 103 98 - 112 mEq/L [facility] PATHOLOGY AND GENOMIC MEDICINE CO2 30 24 - 31 mmol/L [facility] PATHOLOGY AND GENOMIC MEDICINE Anion gap 10@ANIO 7 - 15 mEq/L [facility] PATHOLOGY AND GENOMIC MEDICINE BUN 16 7 - 18 mg/dL [facility] PATHOLOGY AND GENOMIC MEDICINE Creatinine 0.70 0.50 - 0.90 mg/dL [facility] PATHOLOGY AND GENOMIC MEDICINE Glucose 84 65 - 100 mg/dL [facility] PATHOLOGY AND GENOMIC MEDICINE Calcium 8.6 (L) 8.8 - 10.2 mg/dL [facility] PATHOLOGY AND GENOMIC MEDICINE Specimen Plasma specimen Performing Organization Address City/[facility] Phone Number [place] [address] [place] [address] PATHOLOGY AND Local Matters [facility] * Pv duplex venous lower extremity (12/10/2017 [...] findings were discussed with Nurse Berenice Newman [facility] Observation Unit12/10/2017 3:51 PMwho verbalized understanding. [id number] . Procedure Note Hm Interface, Radiology Results [...] were discussed with Nurse Berenice Newman at [facility] Observation Unit 12/10/2017 3:51 PM who verbalized understanding. [id number] . Performing Organization Address City/State/Zipcode Phone Number [facility] [address] [place] [address] * CT Abdomen Pelvis W Contrast (12/08/2017 11:48 PM CDT) Narrative Performed At EXAM: [facility]ORY:diffuse abd pain TECHNIQUE: Multidetector CT [...] on the current examination but statistically patient account representative of cysts. There is no evidence [...] identified. No CT evidence for inguinal hernia. [facility]-[id number] Procedure Note [facility], Radiology Results Incoming - 12/08/2017 11:56 PM [...] on the current examination but statistically patient account representative of cysts. There is no evidence [...] identified. No CT evidence for inguinal hernia. [facility]-[id number] Performing Organization Address City/State/Zipcode Phone Number [facility] [address] [place] [address] * ECG ED Preliminary Interpretation - NOT AN ORDER (12/08/2017 10:37 PM CDT) Only the most recent of 2 results within the time period is included. Narrative Performed At Sanya Carr MD 12/08/2017 10:38 PM ECG ED Preliminary Interpretation - Not an Order Performed by: SANYA CARR Authorized by: SANYA CARR ECG reviewed by ED Physician in the absence of a knit goods press hand: yes Previous ECG: Previous ECG:Compared to current Interpretation: Interpretation: normal Rate: ECG rate:63 ECG rate assessment: normal Rhythm: Rhythm: sinus rhythm Ectopy: Ectopy: none QRS: QRS axis:Normal Conduction: Conduction: normal ST segments: ST segments:Normal T waves: T waves: normal * Troponin (12/08/2017 10:28 PM CDT) Troponin <0.30 0.00 - 0.30 ng/mL [facility] Comment: PATHOLOGY AND 0.11 - 1.49 GENOMIC MEDICINE ng/mlMay indicate increased risk of acute coronary syndrome. >=1.5 ng/ml Consistent with acute myocardial infarction. The diagnostic value of a single normal or non-diagnostic result is questionable.Serial samples at 2-6 hour intervals are required to rule out acute myocardial injury. Specimen Plasma specimen Performing Organization Address [facility] [place] [address] PATHOLOGY AND Local Matters MEDICINE * Prothrombin time with INR (12/08/2017 10:28 PM CDT) Prothrombin time 12.9 12.0 - 15.0 sec [facility] PATHOLOGY AND GENOMIC MEDICINE INR 0.96 0.92 - 1.12 [facility] Comment: PATHOLOGY AND For patients on anticoagulant GENOMIC MEDICINE therapy, reference ranges below: Indication: INR Value Treatment of Venous Thrombosis, 2.0-3.0 pulmonary emboli, or prophylaxis of a venous thrombosis, or systemic emboli. High dose, high risk patients 3.0-4.5 with mechanical valves. NOTE:INR values over 3.0 are sometimes associated with gastrointestinal hemorrhage, especially values over 4.0. Specimen Blood Performing Organization Address [facility] [place] [address] PATHOLOGY AND Local Matters [facility] * B natriuretic peptide (12/08/2017 10:28 PM CDT) BNP 28 0 - 100 pg/mL [facility] PATHOLOGY AND Local Matters MEDICINE Specimen Blood Performing Organization Address [facility] [place] [address] PATHOLOGY AND Local Matters MEDICINE * Lipase level (12/08/2017 10:28 PM CDT) Lipase 30 13 - 60 U/L [facility] PATHOLOGY AND Local Matters MEDICINE Specimen Plasma specimen Performing Organization Address [facility] [place] [address] PATHOLOGY AND Local Matters MEDICINE * Comprehensive metabolic panel (12/08/2017 10:28 PM CDT) Sodium 145 135 - 150 mEq/L [facility] PATHOLOGY AND GENOMIC MEDICINE Potassium 3.6 3.5 - 5.0 mEq/L [facility] PATHOLOGY AND GENOMIC MEDICINE Chloride 103 98 - 112 mEq/L [facility] PATHOLOGY AND GENOMIC MEDICINE CO2 28 24 - 31 mmol/L [facility] PATHOLOGY AND GENOMIC MEDICINE Anion gap 14@ANIO 7 - 15 mEq/L [facility] PATHOLOGY AND GENOMIC MEDICINE BUN 18 7 - 18 mg/dL [facility] PATHOLOGY AND GENOMIC MEDICINE Creatinine 0.80 0.50 - 0.90 mg/dL [facility] PATHOLOGY AND GENOMIC MEDICINE Glucose 115 (H) 65 - 100 mg/dL [facility] PATHOLOGY AND GENOMIC MEDICINE Calcium 9.2 8.8 - 10.2 mg/dL [facility] PATHOLOGY AND GENOMIC MEDICINE Protein 7.4 6.3 - 8.3 g/dL [facility] PATHOLOGY AND GENOMIC MEDICINE Albumin 3.6 3.5 - 5.0 g/dL [facility] PATHOLOGY AND GENOMIC MEDICINE A/G ratio 0.9 0.7 - 3.8 [facility]OLOGY AND GENOMIC MEDICINE Alkaline phosphatase 76 0 - 104 U/L [facility] PATHOLOGY AND GENOMIC MEDICINE AST 20 10 - 35 U/L [facility] PATHOLOGY AND GENOMIC MEDICINE ALT 13 5 - 50 U/L [facility] PATHOLOGY AND GENOMIC MEDICINE Total bilirubin 0.3 0.2 - 1.2 mg/dL [facility] PATHOLOGY AND GENOMIC MEDICINE Specimen Plasma specimen Performing Organization Address City/[facility] Phone Number [facility] [address] [place] [address] PATHOLOGY AND GENOMIC MEDICINE * ECG 12 lead (12/08/2017 10:12 PM CDT) Ventricular rate 63 [facility] Atrial rate 63 [facility] ME interval 152 [facility] QRSD interval 88 [facility] QT interval 410 [facility] QTC interval 419 [facility] P axis 1 41 [facility] QRS axis 1 269 [facility] T wave axis 129 [facility] EKG impression Normal sinus rhythm-Low [facility] voltage QRS-Possible Anterolateral infarct , age undetermined-Abnormal ECG-No previous ECGs available- Performing Organization Address City/[facility] Phone Number [facility] [address] [place] [address] * XR Chest 1 Vw Portable (12/08/2017 9:51 PM CDT) Narrative Performed At EXAMINATION: XR CHEST 1 VW PORTABLE [facility] CLINICAL HISTORY: Chest Pain COMPARISON:None. IMPRESSION: The lungs are clear. No pleural effusion or pneumothorax. The cardiomediastinal silhouette is normal. No acute osseous abnormalities. [facility]-[id number] Procedure Note [facility]m Interface, Radiology Results Incoming - 12/08/2017 9:58 PM CDT EXAMINATION: XR CHEST 1 VW PORTABLE CLINICAL HISTORY: Chest Pain COMPARISON: None. IMPRESSION: The lungs are clear. No pleural effusion or pneumothorax. The cardiomediastinal silhouette is normal. No acute osseous abnormalities. [facility]-[id number] Performing Organization Address City/State/Zipcode Phone Number [facility] [address] [place] [address] after 03/30/2017 Insurance Payer Benefit Subscriber ID Type Phone Address Plan / Group [employer] [facility] xxxxxxxxx HMO COMM STAR+ EDELMIRA [employer] DUAL xxxxxxxxx HMO COMPLETE MCR Advance Directives Patient has advance care planning documents on file. For more information, viry may contact: Pranav Apple [address] [place] [address]
--- NOTE | 2018-03-31 12:28 | Operative Report ---
DATE OF PROCEDURE: March 31, 2018 PREOPERATIVE DIAGNOSES 1. Gastroesophageal reflux disease. 2. Hiatal hernia. POSTOPERATIVE DIAGNOSES 1. Gastroesophageal reflux disease. 2. Hiatal hernia. PROCEDURES 1. Diagnostic laparoscopy. 2. Laparoscopic repair of hiatal hernia with fundoplication. 3. Laparoscopic lysis of adhesions. AUDIO VISUAL EQUIPMENT RENTAL CLERK: None. ANESTHESIA: General endotracheal. INDICATIONS AND FINDINGS: Patient is a 72-year-old female with symptoms of severe heartburn and found to have hiatal hernia and esophagitis. At surgery, the patient was found to have a small hiatal hernia with extensive adhesions involving the omentum to the abdominal wall. TECHNIQUE: After adequate general endotracheal anesthesia, with the patient in the supine position, the abdomen was prepped and draped in sterile fashion with ChloraPrep solution. The skin above the umbilicus and to the left of the midline was infiltrated with 0.5% Marcaine. Transverse incision was made. Abdominal wall was elevated, and a Veress needle was introduced. Pneumoperitoneum was then created. A 10-mm trocar and cannula were passed through this wound. A laparoscopic camera was introduced. Initial laparoscopy revealed extensive adhesions involving omentum. A 5-mm trocar and cannula were placed to the left of the midline subxiphoid. Adhesions along the midline which involved omentum were lysed using the LigaSure device as were the adhesions in the left side of the abdomen and in the lower midline so the remaining trocars could be placed. A 10-mm trocar and cannula were then placed to the right of midline. A 10-mm trocar and cannula was then placed in the anterior axillary line below the costal margin. Additional adhesions were lysed in the lower abdomen, and then additional 10-mm trocar and cannula were placed on the left side of the abdomen. These were all placed under direct vision. With the left lobe of the liver elevated, the fundus of the stomach was then grasped and retracted inferiorly. The lesser omentum was divided with the LigaSure device, exposing the esophageal hiatus. The peritoneal attachments to the left side of the hiatus were divided with a LigaSure device as were the anterior peritoneal attachments and posterior attachments. The right side of the hiatus was completely dissected free. The fundus of the stomach was then mobilized by dividing peritoneal attachments and short gastric vessels with the remaining attachments to the left side of the hiatus also divided, freeing the esophagus completely. Care was taken not to injure the vagus nerves. Esophagus was encircled with a Tecumseh drain. The esophageal hiatus was then closed posterior to the esophagus with interrupted sutures of #0 Ethibond using #0 Ethibond Endoknots. Fundus of the stomach was then passed posterior to the esophagus, and a 360-degree fundoplication was done. A 56-Tongan esophageal dilator was passed. The stomach from the right side was then brought anterior to the esophagus and sutures taken from the stomach to the esophagus to the stomach using interrupted sutures of #0 Ethibond over a distance of approximately 2.5 cm. Care was taken not to injure the vagus nerve. Once the fundoplication was completed, the esophageal dilator was removed. Hemostasis was seen to be adequate. The wound was irrigated with saline and inspected for hemostasis, which was seen to be adequate. Instruments and cannulas were then removed. Pneumoperitoneum was evacuated. Wounds were then closed. Fascia in the larger trocar wound was closed with #0 Vicryl. Skin to all wounds was closed with garth. Sterile dressings were applied to each wound. Patient tolerated the procedure well. Estimated blood loss was 125 mL. There were no complications. All counts were correct. Patient was taken to the recovery room in satisfactory condition. Job#: [id number] cc:FITO SHETTY MD
[2018-03-31] MEDS ORDERED: MORPHINE SULFATE INJ 4 MG/ML INJ ONE (12:53)
--- NOTE | 2018-03-31 14:57 | NUR ---
Report received. patient arrived on floor on hospital bed from PACU. Patient vitals stable, patient in no distress. Bed in lowest position and call rojas within reach
[2018-03-31] MEDS: HYDROMORPHONE 2MG/ML 2 MG/ML ML IV PRN (15:15)
[2018-03-31 15:32] VITALS: BP 123/78
[2018-03-31 15:43] VITALS: BP 123/78
[2018-03-31 16:24] VITALS: BP 123/78
[2018-03-31] MEDS ORDERED: ZOLPIDEM TARTRATE 10 MG TAB PO PRN (16:45)
[2018-03-31] MEDS: ACETAMINOPHEN 325 MG TAB PO PRN ×2 (17:26→23:00)
[2018-03-31] MEDS: METOPROLOL TARTRATE 50 MG TAB PO SCH (17:26)
[2018-03-31] MEDS ORDERED: PROPOFOL IV EMULSION 10 MG/ML 20 ML VIAL ONE (18:27)
[2018-03-31] MEDS ORDERED: ROCURONIUM BROMIDE 10 MG/ML 5ML VIAL ONE (18:27)
[2018-03-31] MEDS ORDERED: DEXAMETHASONE SOD PHOS INJ 4 MG/ML VIAL ONE (18:27)
[2018-03-31] MEDS ORDERED: NEOSTIGMINE 5 MG/5ML SYR ONE (18:27)
[2018-03-31] MEDS ORDERED: ONDANSETRON HCL INJ 2 MG/ML VIAL ONE (18:27)
[2018-03-31] MEDS ORDERED: SEVOFLURANE INHAL SOLN 250 ML PEN BTL ONE (18:27)
[2018-03-31] MEDS ORDERED: GLYCOPYRROLATE INJ 1MG/ 5 ML SYR ONE (18:27)
[2018-03-31] MEDS ORDERED: LIDOCAINE HCL 2% LOCAL INJ 5 ML SDV VIAL INJ ONE (18:27)
[2018-03-31] MEDS ORDERED: ACETAMINOPHEN 1000 MG/100 ML IV ONE (18:27)
[2018-03-31] MEDS ORDERED: EPHEDRINE SULFATE INJ 50 MG/10 ML SYR ONE (18:27)
--- NOTE | 2018-03-31 19:20 | NUR ---
report given to chemical analytical sampler nurse, patient aware of change. Patient in no distress and call rojas within reach.
[2018-03-31 20:00] VITALS: BP 94/54
[2018-03-31] MEDS: TRAZODONE HCL 50 MG TAB PO SCH (20:30)
[2018-03-31] MEDS ORDERED: MIDAZOLAM HCL 2 MG/2 ML VIAL ONE (21:21)
--- NOTE | 2018-03-31 23:00 | NUR ---
Patient received lying in bed. AAO x 3. Patient had complaints of abdominal pain (09/29). Medication administered per eMAR. No signs of respiratory distress. Bed locked and in lowest position. Bed rails up x 2. Patient instructed to call for assistance when needed. Call light within reach.
--- NOTE | 2018-03-31 23:23 | NUR ---
Patient's IV infiltrated on left arm. Old IV removed with tip intact. New IV inserted in Left FA 22G. Patient tolerated well.
[2018-03-31 23:31] VITALS: BP 94/54
[2018-03-31] MEDS: SODIUM CHLORIDE 0.9% 1000ML 1,000 ML IV SCH (23:54)
[2018-04-01] VITALS (8 sets, daily range): BP systolic 94–119; BP diastolic 50–53
[2018-04-01] MEDS: HYDROMORPHONE 2MG/ML 2 MG/ML ML IV PRN ×3 (03:40→18:43)
[2018-04-01 05:07] LABS: BASOPHILS % 0.3 % (0.0-1.0); EOSINOPHILS % 0.1 % (0.0-6.0); HEMATOCRIT 35.7 % (34.2-44.1); HEMOGLOBIN 11.5 g/dL (12.0-16.0); LYMPHOCYTES # (AUTO) 2.6 (1.0-3.2); LYMPHOCYTES % 28.6 % (18.0-39.1); MEAN CORPUSCULAR HEMOGLOBIN 28.7 pg (28-32); MEAN CORPUSCULAR HGB CONC 32.2 g/dL (31-35); MONOCYTES % 11.5 % (4.4-11.3); NEUTROPHILS # (AUTO) 5.3 (2.1-6.9); NEUTROPHILS % 59.1 % (38.7-80.0); PLATELET COUNT 238 x10e3/uL (140-360); RED BLOOD COUNT 4.01 x10e6/uL (3.6-5.1)
[2018-04-01] MEDS: SODIUM CHLORIDE 0.9% 1000ML 1,000 ML IV SCH ×2 (05:57→21:19)
--- NOTE | 2018-04-01 06:46 | NUR ---
Dr. Vazquez called to inquire about patient's welfare. Order received to advance diet from NPO to a "Clear liquid diet" with no carbonated drinks.
--- NOTE | 2018-04-01 06:50 | NUR ---
rounded with shift boss nurse, patient aware of change. Patient in no distress and call rojas within reach.
[2018-04-01] MEDS: ACETAMINOPHEN 325 MG TAB PO PRN (08:35)
[2018-04-01] MEDS: METOPROLOL TARTRATE 50 MG TAB PO SCH ×2 (09:00→17:00)
--- NOTE | 2018-04-01 09:24 | NUR ---
SOCIAL WORK INITIAL ASSESSMENT Gis Specialist to bedside to discuss plan of care with patient/family. CM/SW role and care transitions discussed. Anticipated discharge plan discussed along with duration of care. CM/SW discussed patients right to make decisions in care. CM/SW work hours given. Patient lives: RENTS A ROOM IN A HOUSE WITH A FAMILY Admit/Transfer: VIA HER ROOM POA/Emergency contact: DAUGHTER MARISELA [phone] Current/Previous Home Health: HAS [facility] CHO[facility] BUT THROUGH INSURANCE THEY HAVE CUT HOURS FROM 35 TO 28 NOW TO 25, BUT STATES THE INSURANCE HAS DONE THAT PCP/Follow-up Care: DIOGENES Current/Previous DME: [facility] Other Services: NONE Employment Status: DISABLED Areas of Concerns: NONE Referral Needs: REQUESTING HOME HEALTH Education Needs: NONE IMM/BUTCHER given and signed (if applicable): NA Goal for discharge: RETURN HOME WITH HOME HEALTH CM/SW left business card at the bedside with contact information. Name and number was also written on the patients whiteboard. Patient verbalized understanding of discussion. CM will follow-up with ongoing discharge and transition of care needs.
[2018-04-01] MEDS: HYDROCODONE/APAP 5MG-325MG TAB PO PRN ×2 (10:45→21:17)
[2018-04-01] MEDS ORDERED: NORCO 5-325 TA1 EACH PO (12:58)
--- NOTE | 2018-04-01 19:05 | NUR ---
rounded with respiratory care program director nurse, patient aware of change. Patient in no distress, call rojas within reach.
--- NOTE | 2018-04-01 19:37 | NUR ---
Patient received lying in bed. AAO x 3. No c/o pain. No signs of respiratory distress. Bed locked and in lowest position. Bed rails up x 2. Patient instructed to call for assistance when needed. Call light within reach.
[2018-04-01] MEDS: TRAZODONE HCL 50 MG TAB PO SCH (22:18)
[2018-04-02] VITALS: BP 117/58
[2018-04-02] MEDS: SODIUM CHLORIDE 0.9% 1000ML 1,000 ML IV SCH (01:57)
[2018-04-02 03:29] VITALS: BP 117/58
[2018-04-02 04:00] VITALS: BP 103/48
--- NOTE | 2018-04-02 07:27 | NUR ---
Patient resting comfortably. Shift report given to oncoming nurse.
--- NOTE | 2018-04-02 08:13 | NUR ---
Paged Dr. Vazquez made him aware patient's potassium level 5.4 on 03/29/2018 no new levels were drawn since the . Received orders to discharge patient.
[2018-04-02 08:30] VITALS: BP 123/58
--- NOTE | 2018-04-02 08:54 | NUR ---
Patient discharged home, verbalized understanding of d/c instructions. Escorted patient to front of hospital via wheel chair to meet her daughter in front of hospital.
== END 2018-04-02 08:40 | disposition home or self-care (01) ==
LOC: OR 05:08 → PACU V 11:09 → IMCU 14:57
PROVIDERS: ADMIT Surgery; ATTEND Surgery
DX: K21.0 Gastro-esophageal reflux disease with esophagitis (principal); K44.9 Diaphragmatic hernia without obstruction or gangrene; K66.0 Peritoneal adhesions (postprocedural) (postinfection); E11.9 Type 2 diabetes mellitus without complications; Z79.4 Long term (current) use of insulin; I10 Essential (primary) hypertension; E78.00 Pure hypercholesterolemia, unspecified; E66.01 Morbid (severe) obesity due to excess calories; Z86.711 Personal history of pulmonary embolism; Z01.810 Encounter for preprocedural cardiovascular examination; Z01.812 Encounter for preprocedural laboratory examination; Z82.49 Family history of ischemic heart disease and other diseases of the circulatory system; Z87.891 Personal history of nicotine dependence; Z68.43 Body mass index [BMI] 50.0-59.9, adult
CPT/HCPCS: 36415 ×3; 43281; 71046; 80048; 82948; 85025 ×2; 93005; 96361 ×2; G0378 ×3; J0131; J0690; J1100; J1170 ×3; J1885; J2001; J2250; J2270; J2405; J2704; J3490; J7030 ×2

== ENCOUNTER → 2018-07-26 | Outpatient (CLI) | payer OTHER ==
[~2018-07-26] MED LIST changes: +IOPAMIDOL 370 MG/ML 200 ML INFUS..BTL INJ ONE; +NORCO 5-325 TA1 EACH PO; +SODIUM CHLORIDE 0.9% 50ML 50 ML ONE; +VITAMIN D1000 UNI1 PO
[2018-07-26 11:21] LABS: BLOOD UREA NITROGEN 7 mg/dL (7-26); BUN/CREATININE RATIO 11 (6-25); CREATININE, SERUM 0.61 mg/dL (0.57-1.11); EST GLOMERULAR FILTRATION RATE > 60 ML/MIN (60-)
--- NOTE | 2018-07-26 12:54 | Diagnostic Imaging Report ---
EXAMINATION: CT of the abdomen with contrast TECHNIQUE: Spiral CT images of the abdomen were performed from the lung bases to the iliac crest after the intravenous administration of 100 cc Isovue-370 Coronal and sagittal reformatted images were obtained. COMPARISON: None. CLINICAL HISTORY:Abdominal pain DISCUSSION: ABDOMEN/PELVIS: LOWER THORAX:Linear opacity compatible with scar or subsegmental atelectasis in the left lower lobe. Otherwise unremarkable. HEPATOBILIARY: No focal hepatic lesions. No intra-or extrahepatic biliary ductal dilation. The gallbladder has been removed. SPLEEN: No splenomegaly. PANCREAS: No focal masses or ductal dilatation. ADRENALS: No adrenal nodules. KIDNEYS/URETERS: Subcentimeter hypoattenuating lesion in the left kidney is too small to further characterize but likely to represent a small cyst. No additional focal lesions. No hydronephrosis or calculus. PERITONEUM/RETROPERITONEUM: No ascites or pneumoperitoneum. LYMPH NODES: No intra-abdominal, retroperitoneal, pelvic or inguinal lymphadenopathy. VESSELS: Bulky atherosclerotic plaque at the celiac and SMA origins with moderate stenoses of each. The MARI origin is widely patent. GI TRACT: Visualized segments of the small and large bowel shows no distention or wall thickening. BONES AND SOFT TISSUE: No bony destructive lesions. Postsurgical changes of the anterior abdominal wall with a superficial focus of soft tissue and fat stranding measuring approximately 7.3 cm craniocaudal x 3 cm AP x 2.7 cm transverse, with focal gas tracking to the umbilicus. No osseous destructive lesions. IMPRESSION: Soft tissue and inflammatory changes deep to the umbilicus may reflect nodular postsurgical fibrotic change, though the differential diagnosis includes a small ventral hernia containing inflamed omental fat. No drainable abscess. 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 Correlate for symptoms of abdominal angina. Signed by: Dr. Chris Sunshine M.D. on 07/26/2018 12:50 PM
== END ==
LOC: CT 10:34
PROVIDERS: ATTEND Surgery
DX: R10.9 Unspecified abdominal pain (principal)
CPT/HCPCS: 36415; 74160; 82565; 84520; Q9967

== ENCOUNTER 2018-12-17 10:15 | Emergency (ER) | payer MEDICARE ==
[~2018-12-17] VITALS: Ht 147.3 cm; Wt 113.4 kg
[~2018-12-17 10:15] MED LIST changes: -IOPAMIDOL 370 MG/ML 200 ML INFUS..BTL INJ ONE; -SODIUM CHLORIDE 0.9% 50ML 50 ML ONE
--- OUTSIDE RECORDS SUMMARY | 2018-12-17 10:17 | XMS REPORT | Clinical Summary ---
Author Author [facility] Address Unknown Phone Unavailable Care Team Providers Care Geothermal Operations Engineer Name Role Phone Diogo Sifuentes MD PCP [...] capsule Units by mouth once a week. 01/13/2018 metoprolol tartrate Take 1 tablet 30 [...] mellitus 06/01/2017 Hypothyroidism 06/01/2017 Pulmonary embolism 06/01/2017 Social History Date Tobacco Use Types Packs/Day Years Used Former Smoker Smokeless Tobacco: Never Used Drinks/Week oz/Week Comments Alcohol Use No Sex Assigned at Date Recorded Not on file Industry Job Start Date Occupation Not on file Not on file Not on file Travel End Travel History Travel Start No recent travel history available. Last Filed Vital Signs Not on file Plan of Treatment Health Maintenance Due Date Last Done Comments DIABETIC RETINAL EYE EXAM 1946 DIABETIC FOOT EXAM 1956 URINE MICROALBUMIN 1956 BREAST CANCER SCREENING 1996 COLONOSCOPY SCREENING 1996 SHINGLES VACCINES (#1) 1996 65+ PNEUMOCOCCAL VACCINE 2011 (1 of 2 - PCV13) INFLUENZA VACCINE 10/21/2018 12/21/2016 Results Not on fileafter 12/16/2017 Insurance Type Payer Benefit Subscriber ID Effective Phone Address Plan / Dates Group [facility] MEDICAID [facility] xxxxxxxxx 2017-P COMM STAR+ resent EDELM[employer]A [facility] MEDICARE [facility] DUAL xxxxxxxxx 2017-P COMPLETE resent [facility] Advance Directives For more information, please contact: [phone] Patient [employer] Explanation Type Date Recorded Advance Directives, 12/08/2017 9:20 PM Living Will and Medical Power of Inorganic Chemistry Professor
--- OUTSIDE RECORDS SUMMARY | 2018-12-17 10:17 | XMS REPORT | Continuity of Care Document ---
Author Author [facility] Address Unknown Phone Unavailable Care Team Providers Care Fire Protection Inspector Name Role Phone [employer] Unavailable Unavailable Problems Problem Status Onset Date Classification Date Reported Comments Source Lymphedema of left leg Active Diagnosis 09/02/2016 Martita Najam Pain in left wrist Active Diagnosis 07/25/2016 Martita Najam Osteoarthritis involving multiple joints on both sides of body Active Problem 09/02/2016 Martita Najam Stiffness of left wrist joint Active Diagnosis 07/25/2016 Martita Najam Swelling of joint, wrist, left Active Diagnosis 07/25/2016 Martita Najam Pain in right wrist Active Diagnosis 07/15/2016 Martita Najam Stiffness of right wrist joint Active Diagnosis 07/15/2016 Martita Najam Counseling NOS Active Diagnosis 09/02/2016 Martita Najam Pain of left hand Active Diagnosis 07/03/2016 Martita Najam Left cervical radiculopathy Active Diagnosis 09/02/2016 Martita Najam Pain in right hand Active Diagnosis 07/03/2016 Martita Najam Cervicalgia Active Diagnosis 09/02/2016 Martita Najam Rheumatoid arthritis of multiple sites without rheumatoid factor Active Problem 09/02/2016 Martita Najam Medications Medication Details Route Status Patient Instructions Ordering Provider Order Date Source PredniSONE 1 tablet Orally Active 5 MG Orally Once a day prn with food Naja 12/30/2016 Martita Najam Methotrexate 4 tabs Orally Active 2.5 MG Orally Once a week Naja 09/01/2016 Martita Najam Gabapentin 1 capsule Orally Active 300 MG Orally bedtime Naja 09/01/2016 Martita Najam Folic Acid 1 tablet Orally Active 1 MG Orally Once a day Naja 09/01/2016 Martita Najam PredniSONE 1 tablet Orally Active 5 MG Orally Once a day prn with food Naja 07/02/2016 Martita Najam Levothyroxine Sodium 1 tablet on an empty stomach in the morning Orally Active 75 MCG Orally Once a day [facility] Martita Collins Atorvastatin Calcium 1 tablet Orally Active 20 MG Orally Once a day Karina Martita Collins MethylPREDNISolone 1 tablet with food or milk in the morning Orally Active 4 MG Orally Karina Martita Collins Trazodone HCl 1 tablet at bedtime as needed Orally Active 50 MG Orally Once a day Karina Martita Collins Vitamin D2 1 tablet Orally Active 2000 UNIT Orally Once a day Karina Martita Collins Cyclobenzaprine HCl 1 tablet as needed Orally Active 10 MG Orally Three times a day Karina Martita Collins Ferrous Sulfate 1 tablet Orally Active 325 (65 Fe) MG Orally Once a day Karnia Martita Collins Ibuprofen 1 tablet with food or milk Orally Active 800 MG Orally Three times a day Karina Martita Collins Invokana 1 tablet Orally Active 100 MG Orally Once a day Karina Martita Collins Allergies, Adverse Reactions, Alerts Substance Category Reaction Severity Reaction type Status Date Reported Comments Source Contrast dye Adverse Reaction Info Not Available Adverse Reaction Active 09/01/2016 Martita Simmons Immunizations No Data Provided for This Section Results No Data Provided for This Section Pathology Reports No Data Provided for This Section Diagnostic Reports No Data Provided for This Section Consultation Notes No Data Provided for This Section Discharge Summaries No Data Provided for This Section History and Physicals No Data Provided for This Section Vital Signs Vital Sign Value Date Comments Source Height 59 09/01/2016 Martita Najam Diastolic (mm Hg) 104 09/01/2016 Martita Najam Systolic (mm Hg) 153 09/01/2016 Martita Namarniem Weight 251 09/01/2016 Martitafrankie Collinsm Height 59 07/02/2016 Martita Najam Diastolic (mm Hg) 73 07/02/2016 Martita Najam Systolic (mm Hg) 136 07/02/2016 Martita Namarniem Weight 261.0 07/02/2016 Martita Namarniem Encounters No Data Provided for This Section Procedures No Data Provided for This Section Assessment and Plan No Data Provided for This Section Plan of Care No Data Provided for This Section Social History No Data Provided for This Section Family History No Data Provided for This Section Advance Directives No Data Provided for This Section Functional Status No Data Provided for This Section
[2018-12-17] MEDS ORDERED: DIATRIZOATE MEGL/DIATRIZOA SOD 30 ML BTL PO ONE (10:38)
[2018-12-17 11:14] LABS: BASOPHILS % 0.5 % (0.0-1.0); EOSINOPHILS # (AUTO) 0.3 (0.0-0.4); EOSINOPHILS % 3.3 % (0.0-6.0); HEMATOCRIT 42.3 % (34.2-44.1); LYMPHOCYTES # (AUTO) 3.5 (1.0-3.2); LYMPHOCYTES % 42.6 % (18.0-39.1); MEAN CORPUSCULAR HEMOGLOBIN 25.1 pg (28-32); MEAN CORPUSCULAR HGB CONC 30.7 g/dL (31-35); MEAN CORPUSCULAR VOLUME 81.8 fL (81-99); MONOCYTES # (AUTO) 0.5 (0.2-0.8); MONOCYTES % 6.7 % (4.4-11.3); NEUTROPHILS # (AUTO) 3.8 (2.1-6.9); NEUTROPHILS % 46.7 % (38.7-80.0); PLATELET COUNT 325 x10e3/uL (140-360); RED BLOOD COUNT 5.17 x10e6/uL (3.6-5.1); RED CELL DISTRIBUTION WIDTH 18.8 % (11.7-14.4)
[2018-12-17 11:28] LABS: INR 0.91; PROTHROMBIN TIME 12.7 seconds (11.9-14.5)
[2018-12-17 11:29] LABS: PARTIAL THROMBOPLASTIN TIME 19.9 seconds (23.8-35.5)
[2018-12-17 11:31] LABS: ALANINE AMINOTRANSFERASE 12 IU/L (0-55); ALBUMIN 3.3 g/dL (3.5-5.0); ALBUMIN/GLOBULIN RATIO 0.7 (0.8-2.0); ALKALINE PHOSPHATASE 78 IU/L (40-150); ANION GAP 14.9 mmol/L (8-16); BLOOD UREA NITROGEN 10 mg/dL (7-26); BUN/CREATININE RATIO 14 (6-25); CALCIUM 9.4 mg/dL (8.4-10.2); CARBON DIOXIDE 21 mmol/L (22-29); CHLORIDE 107 mmol/L (98-107); CREATININE, SERUM 0.69 mg/dL (0.57-1.11); EST GLOMERULAR FILTRATION RATE > 60 ML/MIN (60-); GLUCOSE 95 mg/dL (74-118); POTASSIUM 4.9 mmol/L (3.5-5.1); SODIUM 138 mmol/L (136-145)
[2018-12-17 11:34] LABS: BILIRUBIN,URINE NEGATIVE (NEGATIVE); CLARITY,URINE CLOUDY (CLEAR); COLOR,URINE YELLOW (YELLOW); KETONES,URINE NEGATIVE (NEGATIVE); LEUKOCYTE ESTERASE ,URINE MODERATE (NEGATIVE); NITRITE,URINE POSITIVE (NEGATIVE); PROTEIN,URINE DIPSTICK 1+ (NEGATIVE); URINE UROBILINOGEN 0.2 mg/dL (0.2 - 1)
[2018-12-17 11:43] LABS: WBC,URINE (MAN) 21-50 /HPF (0-5)
[2018-12-17 11:44] LABS: BACTERIA,URINE FEW /HPF; EPITHELIAL CELLS,URINE FEW /LPF; RBC,URINE 21-50 /HPF (0-5)
[2018-12-17 11:58] LABS: AMYLASE 66 U/L (25-125); LIPASE 9 U/L (8-78); MAGNESIUM 1.7 MG/DL (1.3-2.1)
[2018-12-17] MEDS ORDERED: CEFTRIAXONE SOD 1 GM/NS 50 ML 50 ML IV ONE (14:00)
--- NOTE | 2018-12-17 15:30 | Diagnostic Imaging Report ---
CT of the abdomen and pelvis, with contrast, 12/17/2018. History: Abdominal pain and diarrhea. Comparison: 07/26/2018. Technique: Multidetector CT scanning of the abdomen and pelvis was performed from the level of the lung bases to the inferior pubic rami after intravenous and oral administration of contrast. Coronal and sagittal multiplanar reformations were obtained. RADIATION DOSE: Total DLP: 778 mGy*cm Dose modulation, iterative reconstruction, and/or weight based adjustment of the mA/kV was utilized to reduce the radiation dose to as low as reasonably achievable. Discussion: LUNG BASES: No visualized abnormalities. ABDOMEN: Cholecystectomy clips are present. The liver, biliary tree, spleen, pancreas, adrenal glands, and kidneys are normal. The hepatic vein, portal vein, and splenic vein are patent. The abdominal aorta is diffusely calcified but within normal limits for size. The stomach, small bowel, and large bowel are unremarkable. There is no bowel wall thickening or bowel dilatation. Appendectomy clips are noted. There is no evidence of adenopathy or free fluid. Midline anterior abdominal wall fat stranding is present without herniation or focal fluid collection. PELVIS: The bladder is normal in appearance. The uterus and adnexa are absent. There is no evidence of free fluid or adenopathy. BONES AND SOFT TISSUES: Advanced degenerative changes are present throughout the lumbar spine without evidence of lytic or sclerotic lesion. IMPRESSION: Status post cholecystectomy, appendectomy, and hysterectomy. No acute abdominal findings. Signed by: Haldey Guerra on 12/17/2018 3:27 PM
[2018-12-17] MEDS ORDERED: CEFDINIR300 MG PO (16:16)
[2018-12-17] MEDS ORDERED: ZOFRAN4 MG SL (16:16)
[2018-12-17] MEDS ORDERED: SODIUM CHLORIDE 0.9% 50ML 50 ML ONE (17:06)
[2018-12-17] MEDS ORDERED: IOPAMIDOL 370 MG/ML 200 ML INFUS..BTL INJ ONE (17:06)
[2018-12-17] MEDS ORDERED: CEFTRIAXONE SOD 1 GM VIAL ONE (17:33)
[2018-12-17 17:38] VITALS: BP 158/85
== END 2018-12-17 17:46 | disposition home or self-care (01) ==
LOC: ER 10:15
DX: R10.33 Periumbilical pain (principal); N30.91 Cystitis, unspecified with hematuria
CPT/HCPCS: 36415; 74177; 80053; 81001; 82150; 83690; 83735; 85025; 85610; 85730; 87086; 87186; 99284; J0696; Q9967